=== PATIENT | female | born 1960 | race Caucasian/White ===

== ENCOUNTER → 2023-04-21 08:43 | Outpatient (REF) | payer OTHER, SELFPAY | LOC: WDC 08:43 | PROVIDERS: ATTENDING PHYSICIAN Obstetrics & Gynecology Gynecology; FAMILY PHYSICIAN Family Medicine | DX: Z12.31 Encounter for screening mammogram for malignant neoplasm of breast (principal) | CPT/HCPCS: 77063; 77067 ==

== ENCOUNTER → 2023-12-22 06:19 | Day surgery (SDC) | payer OTHER, SELFPAY | LOC: GI 06:19 | PROVIDERS: ATTENDING PHYSICIAN Specialist | DX: Z12.11 Encounter for screening for malignant neoplasm of colon (principal); K63.5 Polyp of colon; K22.70 Barrett's esophagus without dysplasia; K21.00 Gastro-esophageal reflux disease with esophagitis, without bleeding; K44.9 Diaphragmatic hernia without obstruction or gangrene; Z86.0101 Personal history of adenomatous and serrated colon polyps | CPT/HCPCS: 45380; 43239; 88305; 88312; 88342 ==

== ENCOUNTER → 2024-02-15 08:59 | Outpatient (REF) | payer OTHER, SELFPAY | LOC: RAD 08:59 | PROVIDERS: ATTENDING PHYSICIAN Surgery; FAMILY PHYSICIAN Family Medicine | DX: K44.9 Diaphragmatic hernia without obstruction or gangrene (principal); K22.70 Barrett's esophagus without dysplasia | CPT/HCPCS: 74246 ==

== ENCOUNTER → 2024-04-24 08:40 | Outpatient (REF) | payer OTHER, SELFPAY | LOC: WDC 08:40 | PROVIDERS: ATTENDING PHYSICIAN Obstetrics & Gynecology Gynecology; FAMILY PHYSICIAN Family Medicine | DX: Z12.31 Encounter for screening mammogram for malignant neoplasm of breast (principal) | CPT/HCPCS: 77063; 77067 ==

== ENCOUNTER 2024-04-25 06:29 | Day surgery (SDC) | payer OTHER, SELFPAY | END 2024-04-25 11:13 | disposition home or self-care (01) | LOC: GI 06:29 | PROVIDERS: ATTENDING PHYSICIAN Specialist | DX: K22.70 Barrett's esophagus without dysplasia (principal); K44.9 Diaphragmatic hernia without obstruction or gangrene | CPT/HCPCS: 43239; 88305; 88342 ==

== ENCOUNTER 2024-05-19 06:21 | Day surgery (SDC) | payer OTHER, SELFPAY ==
[2024-05-04 08:52] LABS: Hematocrit 40.1 % (37.0-47.0); Hemoglobin 13.6 g/dL (12.0-16.0); Mean Corp Hgb Conc. 33.9 g/dL (33.0-37.0); Mean Corpuscular Volume 91.3 fL (81.0-99.0); Mean Platelet Volume 9.6 fL (7.4-10.4); Platelet Count 229 10^3/uL (130-400); Red Blood Cell Count 4.39 10^6/uL (4.20-5.40); Red Cell Dist. Width 12.1 % (11.5-14.5); White Blood Cell Count 5.2 10^3/uL (4.8-10.8)
[2024-05-04 09:31] LABS: Blood Urea Nitrogen 26 mg/dl (7-17); Carbon Dioxide 25 mmol/L (22-30); Chloride 105 mmol/L (98-107); Glucose 87 mg/dl (70-99); Potassium 4.8 mmol/L (3.5-5.1); Sodium 137 mmol/L (135-145); eGFR > 60.00
[2024-05-04 14:12] VITALS: BMI 29.4
[2024-05-19] VITALS (14 sets, daily range): BP systolic 100–128; BP diastolic 53–70; BMI 29.4
[2024-05-19] MEDS: NORMOSOL-R/PLASMALYTE-A 1000 IV (07:45)
[2024-05-19] MEDS: TYLENOL 1000 MG PO (07:48)
[2024-05-19] MEDS: HEPARIN 5000 UNITS SC (08:26)
--- NOTE | 2024-05-19 08:39 | HP.FOC2 ---
Focused History & Physical
Chief Complaint
HPI:
Chief Complaint: GERD and Hiatal Hernia
HPI / Indication for Planned Procedure: 63-year-old female recently seen in outpatient surgical evaluation secondary to a sliding hiatal hernia with history of refractory GERD/Roa's. There is atypia but no dysplasia. Patient presents today for
scheduled operative correction of her hiatal hernia and fundoplication.
Relevant Past Medical History: Other (Restless leg, GERD, hypothyroidism, history of Roa's esophagus)
Relevant Social History: Negative
Relevant Family History: Negative
Relevant Past Surgical History: Positive for (, left breast biopsy, left knee arthroscopic surgery, trigger finger release, right knee arthroscopy)
Review of Systems
Review of Pertinent Systems: All Systems Negative
Medication
See Medication form for detailed medications: Yes
Medication List (including Herbals & OTC):
atorvastatin 10 mg tablet 10 mg PO QPM 05/11/24
esomeprazole magnesium 40 mg capsule,delayed release (Nexium) 80 mg PO DAILY 05/11/24
levothyroxine 88 mcg tablet 88 mcg PO DAILY 05/11/24
Medications Reviewed: Yes
Allergies and Reactions
Patient has Allergies: No
Noted Allergies and Reactions:
Allergy/AdvReac Type Severity Reaction Status Date / Time
No Known Allergies Allergy Verified 05/19/24 07:31
Pertinent Physical Exam
All Other Systems: Negative
Head/Neck: Normal
Lungs: Normal
Heart: Normal
Abdomen: Normal
Extremities: Normal
Neurological: Normal
Diagnosis / Assessment
63-year-old female with sliding hiatal hernia and refractory GERD presenting for surgical correction of hiatal hernia and antireflux surgery
Plan / Procedure
Robotic assisted laparoscopic repair hiatal hernia with fundoplication
Anesthesia/Sedation to be done by Anesthesia Provider: Yes
--- NOTE | 2024-05-19 08:44 | W.SUR.PREOP ---
Pre-Operative Surgical Note
-
I have examined this patient prior to the performance of the scheduled procedure.
The patient's condition is unchanged from the time of the current History and
Physical and the patient is able to undergo the scheduled procedure.
--- NOTE | 2024-05-19 13:37 | W.IMMPOSTOP ---
Addendum entered and electronically signed by Ji De Paz MD 05/26/24 16:11:
#[id number]
Original Note:
Surgical Immed Post Op Note
-
Primary Surgeon: Ji De Paz MD
Assisting Surgeon: Niecy APARICIO
Pre-op Diagnosis: Type I paraesophageal hernia, GERD with Roa's esophagus
Post-op Diagnosis: Type I paraesophageal hernia, GERD with Roa's esophagus
Procedure Performed: Robotic assisted laparoscopic repair of paraesophageal hernia with toupet fundoplication
Anesthesia Type: GETA +0.25% Marcaine
Specimen / Cultures: None
Estimated Blood Loss: 20 mL
Complications: None immediate
Operative Findings: Sliding-type hiatal hernia. Esophageal mobilization to allow for >3cm of intra-abdominal esophageal length without tension. Posterior crural closure with interrupted 0 silk x 3. Single anterior crural closure with 0 silk. 58
Beninese bougie to size fundoplication and crural closure. Posterior/toupet fundoplication over length of about 1.5 cm. Wrap performed with fundus fixated to esophagus utilizing interrupted 2-0 silk stitch x 3 on either side. Posterior wrap loosely
secured to soumya with interrupted 0 silk x 2.
[2024-05-19] MEDS: DILAUDID 0.25 MG IV ×2 (14:26→22:25)
--- NOTE | 2024-05-19 15:15 | PTCARENOTE ---
Received patient from PACU at 1515. Patient AAOx3, minimal c/o pain in right shoulder. Tolerating ice chips, call manzanares in reach, daughters at bedside.
[2024-05-19] MEDS: NSS 1000 IV (15:21)
[2024-05-19] MEDS: DILAUDID 0.5 MG IV (17:28)
[2024-05-19] MEDS: LOVENOX 40 MG SC (17:28)
[2024-05-20] MEDS: NSS 1000 IV (01:21)
[2024-05-20 03:22] VITALS: BP 132/64
[2024-05-20 03:25] VITALS: BP 94/81
[2024-05-20] MEDS: TORADOL 10 MG IV ×3 (03:53→15:33)
[2024-05-20] MEDS: SYNTHROID 88 MCG PO (06:03)
[2024-05-20 07:08] LABS: Hematocrit 32.1 % (37.0-47.0); Hemoglobin 10.7 g/dL (12.0-16.0); Mean Corp Hgb Conc. 33.3 g/dL (33.0-37.0); Mean Corpuscular Hgb 31.3 pg (27.0-31.0); Mean Corpuscular Volume 93.9 fL (81.0-99.0); Platelet Count 160 10^3/uL (130-400); Red Blood Cell Count 3.42 10^6/uL (4.20-5.40); Red Cell Dist. Width 12.9 % (11.5-14.5); White Blood Cell Count 7.2 10^3/uL (4.8-10.8)
[2024-05-20 07:11] VITALS: BP 121/60
[2024-05-20 07:38] LABS: Blood Urea Nitrogen 16 mg/dl (7-17); Calcium 8.5 mg/dl (8.4-10.2); Carbon Dioxide 25 mmol/L (22-30); Chloride 105 mmol/L (98-107); Estimated Creatinine Clearance 70 ml/min; Glucose 90 mg/dl (70-99); Potassium 4.4 mmol/L (3.5-5.1); Sodium 136 mmol/L (135-145); eGFR > 60.00
[2024-05-20] MEDS: PROTONIX IV 40 MG IV (08:11)
[2024-05-20] MEDS: NSS (PRESERVATIVE FREE) 10 ML IV (08:12)
--- NOTE | 2024-05-20 10:14 | CM ---
Reviewed the chart notes and spoke with the patient at the bedside. The patient resides alone in a two story home with no steps to enter. The patient reports no DME/VN/SNF in the past. The patient confirmed her pharmacy of choice is the [facility]
[place]. CM continues to be available to patient/family and is monitoring medical plan for needs at discharge.
Plan: Discharge to home when medically stable. Daughter will provide transportation. No needs anticipated.
[2024-05-20 11:25] VITALS: BP 110/61
[2024-05-20] MEDS: NSS IV (11:26)
--- NOTE | 2024-05-20 11:29 | W.PN.GS2 ---
Addendum entered and electronically signed by Jan Kraft MD 05/20/24 12:03:
I saw and examined the patient.
The BUT[employer] HAND's note was reviewed and I agree with the note.
Original Note:
Today's Communication / Plan
-
diet advancement
Assessment / Plan
-
63 yo female who is POD #1 Robotic assisted laparoscopic repair of paraesophageal hernia with toupet fundoplication
AFVSS
Labs stable
Tolerating sips of clears
+flatus, minimal discomfort
--Clears to fulls today as tolerated
--Analgesics prn, will add more PO options
--OOB/Ambulate
--D/C IVF
--SCDs/lovenox for VTE ppx
discharge today vs tomorrow pending diet tolerance
Subjective Data
-
Date of Service: May 20, 2024
Patient seen and examined at bedside with Dr. Kraft. Denies n/v. Some shoulder pain but analgesics are effective in relieving her discomfort. Passing flatus. Voiding without difficulty
Objective Data
-
Intake and Output
05/19/24 05/20/24 05/21/24
06:59 06:59 06:59
Intake Total 2160 / 2160
Output Total 1550 / 1550
Balance 610 / 610
Intake:
Oral fluids 360 / 360
IV fluids (Total) 1800 / 1800
Normosol 300 / 300
Output:
Urine, Hinds 750 / 750
Urine, Voided 800 / 800
Vital Signs
Temp Pulse Resp BP Pulse Ox
99.0 F 62 16 121/60 99
05/20/24 07:11 05/20/24 07:11 05/20/24 07:11 05/20/24 07:11 05/20/24 07:11
Lab Results
05/20/24 06:08
05/20/24 06:08
Calcium 8.5 mg/dl (8.4-10.2) 05/20/24 06:08
Physical Exam
-
NAD
ABD soft, nt, nd
Incisions well approximated, intact glue
Patient has a hinds catheter: No
Patient has a central line: No
[2024-05-20 15:25] VITALS: BP 114/69
== END 2024-05-20 17:51 | disposition home or self-care (01) ==
LOC: SDS 06:21
PROVIDERS: ATTENDING PHYSICIAN Surgery; FAMILY PHYSICIAN Family Medicine
DX: K44.9 Diaphragmatic hernia without obstruction or gangrene (principal); K21.9 Gastro-esophageal reflux disease without esophagitis
CPT/HCPCS: 43280; 36415; 80048; 85027; 93005

== ENCOUNTER 2024-08-03 06:16 | Day surgery (SDC) | payer OTHER, SELFPAY | END 2024-08-03 15:03 | disposition home or self-care (01) | LOC: GI 06:16 | PROVIDERS: ATTENDING PHYSICIAN Specialist | DX: K22.70 Barrett's esophagus without dysplasia (principal); Z98.890 Other specified postprocedural states | CPT/HCPCS: 43239; 88305 ==